=== PATIENT | male | born 1980 | race American Indian/Alaskan Native ===

== ENCOUNTER 2017-03-28 15:19 | Outpatient (CLI) | payer BC ==
--- NOTE | 2017-03-28 16:27 | Cat Scan Report ---
CT abdomen and pelvis without contrast: Patient gives a history of bilateral flank pain and hematuria. Transverse images are obtained in the low chest to the ischium. Coronal and sagittal 2-D reformatted images are included. The visualized lung bases are clear. The abdominal organs are normal. There is a low attenuation 2.6 cm left adrenal mass. No evidence of renal mass or calculus. No hydronephrosis. The other retroperitoneal structures are unremarkable as well. The unopacified bowel and mesentery is unremarkable. The appendix is visualized. There is no evidence of inflammatory process. There is no apparent adenopathy although the absence of contrast limits this evaluation. Images through the pelvis demonstrate an unremarkable and relatively small urinary bladder. The bones are unremarkable. Impression: Left adrenal adenoma. No other pathology identified.
== END 2017-03-28 15:20 | disposition home or self-care (01) ==
LOC: SPVIMAG 15:19
PROVIDERS: ATTEND Internal Medicine
DX: D35.02 Benign neoplasm of left adrenal gland (principal); N20.0 Calculus of kidney; Z87.891 Personal history of nicotine dependence
CPT/HCPCS: 74176